=== PATIENT | female | born 1975 | race Caucasian/White ===

== ENCOUNTER → 2017-07-31 | Outpatient (CLI) | payer BC ==
[2017-07-31 08:58] LABS: MAGNESIUM 2.4 mg/dl (1.8-2.4); RHEUMATOID FACTOR < 10.0 U/mL (0-15)
[2017-07-31 12:27] LABS: LYME DISEASE AB IGG NEG (NEG)
[2017-07-31 12:28] LABS: LYME DISEASE AB IGM NEG (NEG)
[2017-08-01 03:15] LABS: RAPID PLASMA REAGIN NONREACTIVE (NONREACT)
== END | disposition home or self-care (01) ==
LOC: C.LAB 07:11
PROVIDERS: ATTEND Psychiatry & Neurology Neurology
DX: R20.0 Anesthesia of skin (principal); M62.81 Muscle weakness (generalized)

== ENCOUNTER → 2017-08-20 | Outpatient (CLI) | payer BC ==
[~2017-08-20] MED LIST: GADAVIST IV PRN
--- NOTE | 2017-08-20 16:32 | DIAGNOSTIC IMAGING REPORT ---
MRI OF THE BRAIN WITHOUT AND WITH IV CONTRAST CLINICAL HISTORY: M62.81 Muscle [id number] Numbness SLURRED SPEECH. COMPARISON STUDY: 04/20/2016 TECHNIQUE: MRI of the brain was performed from the vertex to the skull base utilizing various T1 and T2 weighted sequences. Following the IV administration of 5.5 mL of Gadavist contrast, additional enhanced images were obtained. FINDINGS: Sagittal T1, axial diffusion, proton density and T2 weighted axial, coronal FLAIR, and pre and post axial T1-weighted images were acquired. These were supplemented with post gadolinium coronal T1 weighted images. No intra or extra-axial mass lesions are visualized. Axial diffusion-weighted images reveal no evidence of acute or subacute infarction. There is no evidence of ventricular dilatation. Proton density T2-weighted and FLAIR images reveal a persistent cigar shaped 1 cm focus of increased T2 and FLAIR signal within the subcortical left frontal white matter. There are no abnormal flow voids. There is no evidence of pathologic enhancement. There is a small left maxillary sinus retention cyst IMPRESSION: 1. No acute intracranial findings 2. No evidence of acute or subacute infarction 3. Stable cigar shaped focus of increased T2 and FLAIR signal within the left subcortical frontal white matter Electronically signed by: Ciaran Whitfield M.D. 08/20/2017 4:31 PM Dictated Date/Time: 08/20/2017 4:22 PM
--- NOTE | 2017-08-20 16:38 | DIAGNOSTIC IMAGING REPORT ---
MRI CERVICAL SPINE COMBO CLINICAL HISTORY: M62.81 Muscle [id number] Numbness SLURRED SPEECH TECHNIQUE: Sagittal and axial T1, T2 and STIR images were obtained. Images were acquired before and after the administration of 5.5 cc of intravenous Gadavist COMPARISON STUDY: January 07, 2015 The examination is mildly compromised due to motion artifact There are no suspicious areas of marrow replacement. No intrinsic cervical cord lesions are visualized. C2-3: There is no evidence of disc bulge or focal herniation. There is no spinal or foraminal stenosis. C3-4: There is no evidence of disc bulge or focal herniation. There is no spinal or foraminal stenosis. C4-5: There is a mild circumferential disc bulge. There is no significant spinal or foraminal stenosis C5-6 :There is a mild circumferential disc bulge. There is no significant spinal or foraminal stenosis C6-7: There is no evidence of disc bulge or focal herniation. There is no evidence of spinal or foraminal stenosis. C7-T1: Postcontrast images reveal no pathologic enhancement IMPRESSION: 1. The study is mildly compromised due to motion artifact 2. No intrinsic cord lesions identified 3. No pathologically enhancing lesions 4. Mild degenerative changes at the C4-5 and C5-6 levels. Electronically signed by: Ciaran Whitfield M.D. 08/20/2017 4:36 PM Dictated Date/Time: 08/20/2017 4:31 PM
== END | disposition home or self-care (01) ==
LOC: C.MRI 14:53
PROVIDERS: ATTEND Psychiatry & Neurology Neurology
DX: M62.81 Muscle weakness (generalized) (principal); R20.0 Anesthesia of skin